=== PATIENT | female | born 1955 | race Hispanic/Latino ===

== ENCOUNTER 2017-11-14 06:37 | Inpatient (IN) | payer MEDICARE ==
[2017-11-14 06:37] VITALS: BMI 23.6
[2017-11-14] MEDS ORDERED: Albuterol-Ipratrop 3 mg / 0.5 (3 ml) UD INH STA (07:27)
[2017-11-14] MEDS ORDERED: Sodium Chloride 0.9% 1,000 ML IV STA (07:29)
[2017-11-14] MEDS ORDERED: Moxifloxacin IV 400mg/250ml NS 400 MG/250 ML BAG IVPB STA (07:32)
[2017-11-14] MEDS ORDERED: oxyCODONE 10 mg ER Tab (oxyCONTIN) PO STA (07:40)
[2017-11-14] MEDS ORDERED: levoFLOXacin 500 mg in D5W 500 MG/100 ML BAG IVPB ONE ×2 (07:49→07:54)
[2017-11-14] MEDS ORDERED: Albuterol-Ipratrop 3 mg / 0.5 (3 ml) UD ONE (07:53)
[2017-11-14] MEDS ORDERED: oxyCODONE 10 mg ER Tab (oxyCONTIN) PO ONE (07:53)
[2017-11-14 07:56] LABS: ABG ALLEN TEST YES; ARTERIAL BLOOD GAS HCO3 30.9 mmol/L (21-28); ARTERIAL BLOOD GAS O2 SAT 97.9 % (95-98); ARTERIAL BLOOD GAS PCO2 37 mm/Hg (35-45); ARTERIAL BLOOD GAS PH 7.53 (7.35-7.45); ARTERIAL BLOOD GAS PO2 58 mm/Hg (80-100)
[2017-11-14 08:06] LABS: BASO # 0.1 K/uL (0.0-0.2); BASO % 0.6 % (0.0-2.0); EOS # 0.2 K/uL (0.0-0.7); EOS % 1.2 % (0.0-4.0); HEMOGLOBIN 9.2 g/dL (12.0-16.0); LYMPH # 1.2 K/uL (1.0-4.3); LYMPH % 6.1 % (20.0-40.0); MEAN CELL VOLUME 85.4 fl (81.0-99.0); MEAN CORPUSCULAR HGB CONC 31.7 g/dL (33.0-37.0); MEAN PLATELET VOLUME 7.7 fl (7.2-11.7); MONO # 1.6 K/uL (0.0-0.8); MONO % 8.5 % (0.0-10.0); NEUT # 16.2 K/uL (1.8-7.0); NEUT % 83.6 % (50.0-75.0); PLATELET COUNT 438 K/uL (130-400); RED CELL DISTRIBUTION WIDTH 17.6 % (11.5-14.5); WHITE BLOOD COUNT 19.4 K/uL (4.8-10.8)
--- NOTE | 2017-11-14 08:14 | ED PDOC ---
HPI: General Adult Time Seen by Provider: 11/14/17 07:08 Chief Complaint (Nursing): Cough, Cold, Congestion Chief Complaint (Provider): Cough, Cold, Congestion History Per: Patient History/Exam Limitations: no limitations Onset/Duration Of Symptoms: Persistent (x3 weeks) Current Symptoms Are (Timing): Still Present Additional Complaint(s): Annetta Omalley is a 62 year old female with a history of COPD, hypertension, aortic stenosis, rheumatoid arthritis, and high cholesterol that presents to the ED with a chief complaint of a productive cough with thick, dark mucous that she has been experiencing for the past three weeks. Patient reports that since its onset, her cough has gradually worsened, and that she has had decreased appetite and has been feeling generally weak. She reports associated right sided back pain and denies any fevers, chills, vomiting, or diarrhea. Past Medical History Reviewed: Historical Data, Nursing Documentation, Vital Signs Vital Signs: Last Vital Signs Temp 97.6 F 11/14/17 06:53 Pulse 96 H 11/14/17 06:53 Resp 18 11/14/17 06:53 BP 149/65 11/14/17 06:53 Pulse Ox 91 L 11/14/17 08:28 - Medical History PMH: Anxiety, Bronchitis, COPD, HTN, Hypercholesterolemia, Mitral Valve Prolapse , Rheumatoid Arthritis, Seizures Denies: Depression, Chronic Kidney Disease Other PMH: aortic stenosis - Surgical History Surgical History: Cholecystectomy - Family History Family History: States: Unknown Family Hx - Immunization History Hx Tetanus Toxoid Vaccination: Yes - Home Medications Home Medications: Ambulatory Orders Medication Instructions Recorded Alprazolam [Xanax] 0.5 mg PO TID 11/14/17 HCTZ/Losartan Potassium [Hyzaar 1 tab PO DAILY 11/14/17 12.5 mg-50 mg] Multivitamin [Multivitamins] 1 tab PO DAILY 11/14/17 Oxycodone HCl [Oxycontin] 30 mg PO Q12 11/14/17 Rosuvastatin Calcium [Crestor] 5 mg PO DAILY 11/14/17 hydroCHLOROthiazide [Hydrodiuril] 12.5 mg PO DAILY 11/14/17 levETIRAcetam [Keppra] 250 mg PO BID 11/14/17 oxyCODONE [oxyCODONE Immediate 30 mg PO Q4 PRN 01/28/18 Release Tab] - Allergies Allergies/Adverse Reactions: Allergies Allergy/AdvReac Type Severity Reaction Status Date / Time duloxetine [From Cymbalta] Allergy URTICARIA Verified 11/14/17 06:51 erythromycin base Allergy ANAPHYLAXIS Verified 11/14/17 06:51 Penicillins Allergy ANAPHYLAXIS Verified 11/14/17 06:51 pregabalin [From Lyrica] Allergy URTICARIA Verified 11/14/17 06:51 Review of Systems Constitutional: Positive for: Weakness (generalized), Other (decreased appetite) Cardiovascular: Positive for: Chest Pain (right-sided) Respiratory: Positive for: Cough (productive), Shortness of Breath Gastrointestinal: Negative for: Nausea, Vomiting, Diarrhea Physical Exam - Reviewed Nursing Documentation Reviewed: Yes Vital Signs Reviewed: Yes - Physical Exam Appears: Positive for: Non-toxic. Negative for: Well (Patient moderately ill- appearing) Head Exam: Positive for: ATRAUMATIC, NORMOCEPHALIC Skin: Positive for: Normal Color, Warm. Negative for: Rash Eye Exam: Positive for: Normal appearance, EOMI, PERRL ENT: Positive for: Other (Slightly). Negative for: Normal ENT Inspection Cardiovascular/Chest: Positive for: Regular Rate, Rhythm. Negative for: Murmur Respiratory: Positive for: Crackles (Crackles present on entire right side, crackles only present in left lower field). Negative for: Normal Breath Sounds (Mild SOB) Gastrointestinal/Abdominal: Positive for: Normal Exam, Soft. Negative for: Tenderness Extremity: Positive for: Normal ROM. Negative for: Pedal Edema, Swelling Neurologic/Psych: Positive for: Alert, Oriented. Negative for: Motor/Sensory Deficits - Laboratory Results Result Diagrams: 11/14/17 07:54 11/14/17 07:54 - ECG O2 Sat by Pulse Oximetry: 91 (RA) Pulse Ox Interpretation: Normal Medical Decision Making Medical Decision Making: Impression: Pneumonia with hx of COPD Impression: * EKG * Chest X-Ray * Albuterol 3 mL * Levofloxacin 500 mg in 100 mL IVPB * NaCl 1000 mLs at 125 ms/hr * Oxycodone 30 mg PO * Urinalysis * Blood Culture * Flu Swab * Reevaluation Scribe Attestation: Documented by Yareli Singh, acting as a scribe for Antonia David MD. Provider Scribe Attestation: All medical record entries made by the Scribe were at my direction and personally dictated by me. I have reviewed the chart and agree that the record accurately reflects my personal performance of the history, physical exam, medical decision making, and the department course for this patient. I have also personally directed, reviewed, and agree with the discharge instructions and disposition. 9.10a - patient is still short of breath. PO2 58. WBC 19K. CXR: right sided haziness. Will admit for pneumonia to hospitalist service. Dr. Osorio is on the list of [facility] MDs who admit to hospitalist service. Disposition - Clinical Impression Clinical Impression: Pneumonia - Patient ED Disposition Is Patient to be Admitted: Yes Doctor Will See Patient In The: Hospital - Disposition Disposition: Transfer of Care Disposition Time: 09:15 Condition: FAIR Forms: [employer] (Chinese) - Pt Status Changed To: Hospital Disposition Of: Inpatient - Admit Certification Admit to Inpatient:: After my assessment, the patient will require hospitalization for at least two midnights. This is because of the severity of symptoms shown, intensity of services needed, and/or the medical risk in this patient being treated as an outpatient. - POA Present On Arrival: None
[2017-11-14 08:15] LABS: ALB/GLOB RATIO 0.7 (1.0-2.1); ALT/SGPT 35 U/L (9-52); AST/SGOT 44 U/L (14-36); BLOOD UREA NITROGEN 11 mg/dl (7-17); CALCIUM 8.5 mg/dL (8.4-10.2); GFR AFRICAN-AMERICAN > 60; GFR NON-AFRICAN AMERICAN > 60
[2017-11-14] MEDS ORDERED: Promethazine DM 6.25 mg-15 mg/5 ml Syrup PO STA (09:22)
[2017-11-14] MEDS ORDERED: Promethazine/Cod 6.25mg-10mg/5ml Syr UD ONE (09:45)
[2017-11-14] MEDS ORDERED: Sodium Chloride 3% for Inhalation 4 ML VIAL.NEB IH PRN (09:46)
--- NOTE | 2017-11-14 10:00 | CP.PCM.HP ---
History of Present Illness - History of Present Illness History of Present Illness: 62 yo female with history of RA on Humira, COPD, HTN, HLD, Aortic Stenosis, previous CVA and Seizure brought by son because of cough productive with thick, yellow sputum for the last 2 weeks associated with body aches and fever. Also has been having SOB and right sided chest pain when taking a deep breath and coughing. Present on Admission - Present on Admission Any Indicators Present on Admission: No History of DVT/PE: No History of Uncontrolled Diabetes: No Urinary Catheter: No Decubitus Ulcer Present: No Review of Systems - Review of Systems All systems: reviewed and no additional remarkable complaints except (aside from those mentioned above, 12 point system review were negative by me) Past Patient History - Infectious Disease Hx of Infectious Diseases: None - Tetanus Immunizations Tetanus Immunization: Unknown - Past Medical History & Family History Past Medical History?: Yes Pertinent Family History: mother had cervical cancer, sister had breast cancer - Past Social History Smoking Status: Heavy Smoker > 10 Cigarettes Daily Alcohol: None Drugs: Denies Home Situation {Lives}: With Family - CARDIAC Hx Heart Murmur: Yes Hx Hypercholesterolemia: Yes Hx Hypertension: Yes Hx Mitral Valve Prolapse: Yes - PULMONARY Hx Bronchitis: Yes Hx Chronic Obstructive Pulmonary Disease (COPD): Yes - NEUROLOGICAL HX Cerebrovascular Accident: Yes Hx Seizures: Yes - HEENT Hx HEENT Problems: No - RENAL Hx Chronic Kidney Disease: No - ENDOCRINE/METABOLIC Hx Endocrine Disorders: No - HEMATOLOGICAL/ONCOLOGICAL Hx Blood Disorders: Yes Hx Cancer: Yes (Skin Ca on face 20 yrs ago) - INTEGUMENTARY Hx Dermatological Problems: Yes (facial skin cancer??) - MUSCULOSKELETAL/RHEUMATOLOGICAL Hx Rheumatoid Arthritis: Yes - GASTROINTESTINAL Hx Gastrointestinal Disorders: No - GENITOURINARY/GYNECOLOGICAL Hx Genitourinary Disorders: No - PSYCHIATRIC Hx Anxiety: Yes Hx Depression: No - SURGICAL HISTORY Hx Breast Biopsy: Yes Hx Cholecystectomy: Yes Hx Hysterectomy: Yes - ANESTHESIA Hx Anesthesia: Yes Hx Anesthesia Reactions: No Hx Malignant Hyperthermia: No Meds Allergies/Adverse Reactions: Allergies Allergy/AdvReac Type Severity Reaction Status Date / Time duloxetine [From Cymbalta] Allergy URTICARIA Verified 11/14/17 06:51 erythromycin base Allergy ANAPHYLAXIS Verified 11/14/17 06:51 Penicillins Allergy ANAPHYLAXIS Verified 11/14/17 06:51 pregabalin [From Lyrica] Allergy URTICARIA Verified 11/14/17 06:51 Physical Exam - Constitutional Appears: No Acute Distress - Head Exam Head Exam: ATRAUMATIC - Eye Exam Eye Exam: absent: Scleral icterus - ENT Exam ENT Exam: Mucous Membranes Moist. absent: Normal Exam (poor dental hygiene) - Neck Exam Neck exam: Negative for: Meningismus - Respiratory Exam Respiratory Exam: Rales (on both lower mack , more on the right). absent: Wheezes, Respiratory Distress - Cardiovascular Exam Cardiovascular Exam: REGULAR RHYTHM, +S1, +S2, Systolic Murmur - GI/Abdominal Exam GI & Abdominal Exam: Soft. absent: Tenderness - Rectal Exam Rectal Exam: Deferred - Extremities Exam Extremities exam: Negative for: calf tenderness, pedal edema - Back Exam Back exam: absent: tenderness - Neurological Exam Neurological exam: Alert, Oriented x3 - Psychiatric Exam Psychiatric exam: Normal Affect - Skin Skin Exam: Dry, Intact Results - Vital Signs Recent Vital Signs: Last Vital Signs Temp 98.9 F 11/14/17 09:25 Pulse 97 H 11/14/17 09:25 Resp 16 11/14/17 09:25 BP 135/76 11/14/17 09:25 Pulse Ox 91 L 11/14/17 09:26 - Labs Result Diagrams: 11/14/17 07:54 11/14/17 07:54 Labs: Laboratory Results - last 24 hr 11/14/17 11/14/17 11/14/17 07:32 07:50 07:54 WBC 19.4 H RBC 3.40 L Hgb 9.2 L Hct 29.0 L MCV 85.4 MCH 27.0 MCHC 31.7 L RDW 17.6 H Plt Count 438 H MPV 7.7 Neut % (Auto) 83.6 H Lymph % (Auto) 6.1 L [place] % (Auto) 8.5 Eos % (Auto) 1.2 Baso % (Auto) 0.6 Neut # 16.2 H Lymph # 1.2 [place] # 1.6 H Eos # 0.2 Baso # 0.1 pCO2 37 pO2 58 L HCO3 30.9 H ABG pH 7.53 H ABG Total CO2 32.0 H ABG O2 Saturation 97.9 ABG Base Excess 7.8 H Adrian Test Yes ABG Potassium 3.6 A-a O2 Difference 45.0 Sodium 137.0 Chloride 101.0 Glucose 89 Lactate 0.8 FiO2 21.0 Potassium Carbon Dioxide Anion Gap BUN Creatinine Est GFR ( Amer) Est GFR (Non-Af Amer) Random Glucose Calcium Total Bilirubin AST ALT Alkaline Phosphatase Total Protein Albumin Globulin Albumin/Globulin Ratio Arterial Blood Potassium 3.6 Influenza Typ A,B (EIA) Negative for flu a/b 11/14/17 07:54 WBC RBC Hgb Hct MCV MCH MCHC RDW Plt Count MPV Neut % (Auto) Lymph % (Auto) [place] % (Auto) Eos % (Auto) Baso % (Auto) Neut # Lymph # [place] # Eos # Baso # pCO2 pO2 HCO3 ABG pH ABG Total CO2 ABG O2 Saturation ABG Base Excess Adrian Test ABG Potassium A-a O2 Difference Sodium 138 Chloride 99 Glucose Lactate FiO2 Potassium 3.7 Carbon Dioxide 29 Anion Gap 14 BUN 11 Creatinine 0.6 L Est GFR ( Amer) > 60 Est GFR (Non-Af Amer) > 60 Random Glucose 92 Calcium 8.5 Total Bilirubin 0.5 AST 44 H ALT 35 Alkaline Phosphatase 136 H Total Protein 7.1 Albumin 3.0 L Globulin 4.2 H Albumin/Globulin Ratio 0.7 L Arterial Blood Potassium Influenza Typ A,B (EIA) Assessment & Plan - Assessment and Plan (Free Text) Assessment: 62 yo female with history of RA on Humira, COPD, HTN, HLD, Aortic Stenosis, previous CVA and Seizure brought by son because of cough productive with thick, yellow sputum for the last 2 weeks associated with body aches and fever. Also has been having SOB and right sided chest pain when taking a deep breath and coughing. 1. RLL Pneumonia follow up blood and sputum culture continue Levaquin 500mg IV daily continue IV hydration 2. COPD Duoneb q 4hrs prn for wheezing or SOB 3. HTN BP stable continue HCTZ and Losartan 4. Seizure continue Keppra 5. Aortic Stenosis aortic valve replacement recommended but patient is thinking about it 6. DVT prophylaxis Lovenox 40mg SQ daily
[2017-11-14 10:54] LABS: LYMPHOCYTE 6 % (20-50); MONOCYTE 5 % (0-10); NEUTROPHIL 89 % (42-75); PLATELET ESTIMATE SLIGHTLY INCREASED (NORMAL); TOTAL CELLS COUNTED 100
[2017-11-14 10:55] LABS: ANISOCYTOSIS MODERATE; MICROCYTOSIS SLIGHT
[2017-11-14 10:56] LABS: LARGE PLATELETS PRESENT; SPHEROCYTES SLIGHT
[2017-11-14 11:26] LABS: SQUAMOUS EPITHIAL 1 /hpf (0-5); URINE BILIRUBIN NEGATIVE (NEGATIVE); URINE BLOOD NEGATIVE (NEGATIVE); URINE CLARITY CLEAR (Clear); URINE COLOR YELLOW (YELLOW); URINE GLUCOSE (UA) NEG (Normal); URINE LEUKOCYTE ESTERASE NEG Leu/uL (Negative); URINE NITRATE NEGATIVE (NEGATIVE); URINE PROTEIN NEGATIVE (NEGATIVE); URINE UROBILINOGEN 0.2-1.0 mg/dL (0.2-1.0)
--- NOTE | 2017-11-14 11:38 | RAD ---
HISTORY: productive cough x3 weeks, crackles on exam COMPARISON: No prior. TECHNIQUE: Chest PA and lateral FINDINGS: LUNGS: Patchy infiltrate changes seen in the right lung base with what blunting of the right CP angle possibly due to an effusion in this location. There also coarsened/increased interstitial markings bilaterally with a few scattered peribronchial cuffing changes which could be secondary to concomitant underlying reactive/inflammatory airway disease or sequela viral illness. PLEURA: No significant pleural effusion identified. No pneumothorax apparent. CARDIOVASCULAR: . Heart size within range of normal. . OSSEOUS STRUCTURES: Minor multilevel degenerative spondylosis of the thoracic spine. . VISUALIZED UPPER ABDOMEN: Normal. OTHER FINDINGS: None. IMPRESSION: Patchy infiltrate changes seen in the right lung base with what blunting of the right CP angle possibly due to an effusion in this location. There also coarsened/increased interstitial markings bilaterally with a few scattered peribronchial cuffing changes which could be secondary to concomitant underlying reactive/inflammatory airway disease or sequela viral illness.
[2017-11-14] MEDS: oxyCODONE 10 mg Immediate Release Tab PO PRN ×2 (13:11→18:32)
[2017-11-14] MEDS: Albuterol-Ipratrop 3 mg / 0.5 (3 ml) UD INH PRN ×2 (17:12→23:23)
[2017-11-14] MEDS: guaiFENesin DM 200 mg-20 mg/10 ml UD PO PRN ×2 (18:32→23:20)
[2017-11-14] MEDS: oxyCODONE 10 mg ER Tab (oxyCONTIN) PO SCH ×2 (21:47→23:21)
[2017-11-15 06:59] LABS: BASO # 0.1 K/uL (0.0-0.2); BASO % 0.9 % (0.0-2.0); EOS # 0.2 K/uL (0.0-0.7); EOS % 1.6 % (0.0-4.0); HEMOGLOBIN 8.6 g/dL (12.0-16.0); LYMPH # 2.3 K/uL (1.0-4.3); LYMPH % 15.8 % (20.0-40.0); MEAN CELL VOLUME 85.5 fl (81.0-99.0); MEAN CORPUSCULAR HEMOGLOBIN 28.3 pg (27.0-31.0); MEAN CORPUSCULAR HGB CONC 33.1 g/dL (33.0-37.0); MEAN PLATELET VOLUME 8.1 fl (7.2-11.7); MONO # 1.5 K/uL (0.0-0.8); MONO % 10.2 % (0.0-10.0); NEUT # 10.4 K/uL (1.8-7.0); NEUT % 71.5 % (50.0-75.0); RBC 3.04 Mil/uL (3.80-5.20); RED CELL DISTRIBUTION WIDTH 17.6 % (11.5-14.5); WHITE BLOOD COUNT 14.6 K/uL (4.8-10.8)
[2017-11-15 07:06] LABS: BLOOD UREA NITROGEN 6 mg/dl (7-17); CALCIUM 8.4 mg/dL (8.4-10.2); GFR AFRICAN-AMERICAN > 60; GFR NON-AFRICAN AMERICAN > 60
[2017-11-15] MEDS: Albuterol-Ipratrop 3 mg / 0.5 (3 ml) UD INH PRN ×3 (07:17→19:30)
[2017-11-15] MEDS: oxyCODONE 10 mg Immediate Release Tab PO PRN ×3 (07:59→21:43)
[2017-11-15] MEDS: guaiFENesin DM 200 mg-20 mg/10 ml UD PO PRN ×2 (07:59→21:39)
[2017-11-15] MEDS: HCTZ/Losartan 12.5/50 Tab PO SCH (09:01)
[2017-11-15] MEDS: Pantoprazole 40 mg EC Tab PO SCH (09:01)
[2017-11-15] MEDS: Multivitamin With Minerals Tab PO SCH (09:01)
[2017-11-15] MEDS: Enoxaparin 40 mg Syringe SC SCH (09:02)
[2017-11-15] MEDS: oxyCODONE 10 mg ER Tab (oxyCONTIN) PO SCH ×3 (11:14→21:39)
[2017-11-15] MEDS: levoFLOXacin 500 mg in D5W 500 MG/100 ML BAG IVPB SCH (11:30)
--- NOTE | 2017-11-15 12:52 | CARD ---
APPROVED REPORT EKG Measurement Heart [id number] <Conclusion> Normal sinus rhythm Normal ECG
--- NOTE | 2017-11-15 19:30 | CP.PCM.PN ---
Subjective - Date & Time of Evaluation Date of Evaluation: 11/15/17 Time of Evaluation: 17:40 - Subjective Subjective: Patient seen and examined. Still complaining of coughing and has difficulty expectorating phlegm. Denied SOB. Objective - Vital Signs/Intake and Output Vital Signs (last 24 hours): Temp Pulse Resp BP Pulse Ox 97.6 F 79 20 111/62 97 11/15/17 16:10 11/15/17 16:10 11/15/17 16:10 11/15/17 16:10 11/15/17 16:10 - Medications Medications: Current Medications Albuterol/Ipratropium (Duoneb 3 Mg/0.5 Mg (3 Ml) Ud) 3 ml INH RQ4 PRN PRN Reason: Shortness of Breath Last Admin: 11/15/17 13:02 Dose: 3 ml Alprazolam (Xanax) 0.5 mg PO TID [facility] Last Admin: 11/15/17 17:16 Dose: 0.5 mg Atorvastatin Calcium (Lipitor) 10 mg PO DAILY [facility] Last Admin: 11/15/17 09:02 Dose: 10 mg Docusate Sodium (Colace) 100 mg PO BID [facility] Last Admin: 11/15/17 17:14 Dose: 100 mg Enoxaparin Sodium (Lovenox) 40 mg SC DAILY [facility] PRN Reason: Protocol Last Admin: 11/15/17 09:02 Dose: 40 mg Guaifenesin/Dextromethorphan (Robitussin Dm) 10 ml PO Q4 PRN PRN Reason: Cough Last Admin: 11/15/17 07:59 Dose: 10 ml HCTZ/Losartan Potassium (Hyzaar 12.5 Mg-50 Mg) 1 tab PO DAILY [facility] Last Admin: 11/15/17 09:01 Dose: 1 tab Levofloxacin/Dextrose (Levaquin 500mg) 500 mg in 100 mls @ 100 mls/hr IVPB DAILY [facility] PRN Reason: Protocol Last Admin: 11/15/17 11:30 Dose: 100 mls/hr Levetiracetam (Keppra) 250 mg PO BID [facility] Last Admin: 11/15/17 17:15 Dose: 250 mg Multivitamins/Minerals (Therapeutic-M Tab) 1 tab PO DAILY [facility] Last Admin: 11/15/17 09:01 Dose: 1 tab Oxycodone HCl (Oxycontin Extended Release Tab) 30 mg PO Q12 [facility] Last Admin: 11/15/17 11:14 Dose: 30 mg Oxycodone HCl (Oxycodone Immediate Release Tab) 30 mg PO Q4 PRN PRN Reason: Pain, moderate (4-7) Last Admin: 11/15/17 15:35 Dose: 30 mg Pantoprazole Sodium (Protonix Ec Tab) 40 mg PO DAILY [facility] Last Admin: 11/15/17 09:01 Dose: 40 mg - Labs Labs: 11/15/17 05:45 11/15/17 05:45 - Constitutional Appears: No Acute Distress - Head Exam Head Exam: ATRAUMATIC - Eye Exam Eye Exam: absent: Scleral icterus - ENT Exam ENT Exam: Mucous Membranes Dry - Neck Exam Neck Exam: absent: Meningismus - Respiratory Exam Respiratory Exam: Rhonchi. absent: Wheezes, Respiratory Distress - Cardiovascular Exam Cardiovascular Exam: REGULAR RHYTHM, +S1, +S2, Murmur - GI/Abdominal Exam GI & Abdominal Exam: Soft. absent: Tenderness - Rectal Exam Rectal Exam: Deferred - Extremities Exam Extremities Exam: absent: Calf Tenderness - Neurological Exam Neurological Exam: Alert, Oriented x3 - Psychiatric Exam Psychiatric exam: Normal Affect - Skin Skin Exam: Dry Assessment and Plan - Assessment and Plan (Free Text) Assessment: 62 yo female with history of RA on Humira, COPD, HTN, HLD, Aortic Stenosis, previous CVA and Seizure brought by son because of cough productive with thick, yellow sputum for the last 2 weeks associated with body aches and fever. Also has been having SOB and right sided chest pain when taking a deep breath and coughing. 1. RLL Pneumonia continue Levaquin 500mg IV daily continue IV hydration WBC down from 19.4 to 14.6 repeat CBC in am 2. COPD Duoneb q 4hrs prn for wheezing or SOB 3. HTN BP stable continue HCTZ and Losartan 4. Seizure continue Keppra 5. Aortic Stenosis aortic valve replacement recommended but patient is thinking about it 6. DVT prophylaxis Lovenox 40mg SQ daily
[2017-11-16] MEDS: guaiFENesin DM 200 mg-20 mg/10 ml UD PO PRN ×3 (03:34→17:05)
[2017-11-16] MEDS: Albuterol-Ipratrop 3 mg / 0.5 (3 ml) UD INH PRN ×3 (03:39→23:52)
[2017-11-16] MEDS: oxyCODONE 10 mg Immediate Release Tab PO PRN ×4 (04:16→21:19)
[2017-11-16 06:51] LABS: BASO # 0.1 K/uL (0.0-0.2); BASO % 0.8 % (0.0-2.0); EOS # 0.5 K/uL (0.0-0.7); EOS % 3.9 % (0.0-4.0); HEMOGLOBIN 8.5 g/dL (12.0-16.0); LYMPH % 16.7 % (20.0-40.0); MEAN CELL VOLUME 85.2 fl (81.0-99.0); MEAN CORPUSCULAR HEMOGLOBIN 28.1 pg (27.0-31.0); MEAN PLATELET VOLUME 7.6 fl (7.2-11.7); MONO # 1.1 K/uL (0.0-0.8); MONO % 9.6 % (0.0-10.0); NEUT # 8.2 K/uL (1.8-7.0); NRBC % 0.1 % (0.0-0.0); RBC 3.01 Mil/uL (3.80-5.20); RED CELL DISTRIBUTION WIDTH 17.8 % (11.5-14.5); WHITE BLOOD COUNT 11.9 K/uL (4.8-10.8)
[2017-11-16] MEDS: oxyCODONE 10 mg ER Tab (oxyCONTIN) PO SCH ×2 (09:12→21:59)
[2017-11-16] MEDS: Multivitamin With Minerals Tab PO SCH (09:14)
[2017-11-16] MEDS: Pantoprazole 40 mg EC Tab PO SCH (09:14)
[2017-11-16] MEDS: Enoxaparin 40 mg Syringe SC SCH (09:15)
[2017-11-16] MEDS: levoFLOXacin 500 mg in D5W 500 MG/100 ML BAG IVPB SCH (11:26)
[2017-11-16] MEDS: HCTZ/Losartan 12.5/50 Tab PO SCH (14:13)
--- NOTE | 2017-11-16 20:21 | CP.PCM.PN ---
Subjective - Date & Time of Evaluation Date of Evaluation: 11/16/17 Time of Evaluation: 11:00 - Subjective Subjective: Patient seen and examined at bedside. She is still complaining of cough productive of sputum. Denies any shortness of breath. Denies fever or chest pain. Objective - Vital Signs/Intake and Output Vital Signs (last 24 hours): Temp Pulse Resp BP Pulse Ox 97.1 F L 78 18 105/67 95 11/16/17 15:54 11/16/17 15:54 11/16/17 15:54 11/16/17 15:54 11/16/17 15:54 - Medications Medications: Current Medications Albuterol/Ipratropium (Duoneb 3 Mg/0.5 Mg (3 Ml) Ud) 3 ml INH RQ4 PRN PRN Reason: Shortness of Breath Last Admin: 11/16/17 07:55 Dose: 3 ml Alprazolam (Xanax) 0.5 mg PO TID@0900,1400,2100 [facility] Atorvastatin Calcium (Lipitor) 10 mg PO DAILY [facility] Last Admin: 11/16/17 09:14 Dose: 10 mg Docusate Sodium (Colace) 100 mg PO BID [facility] Last Admin: 11/16/17 18:07 Dose: 100 mg Enoxaparin Sodium (Lovenox) 40 mg SC DAILY [facility] PRN Reason: Protocol Last Admin: 11/16/17 09:15 Dose: 40 mg Guaifenesin/Dextromethorphan (Robitussin Dm) 10 ml PO Q4 PRN PRN Reason: Cough Last Admin: 11/16/17 17:05 Dose: 10 ml HCTZ/Losartan Potassium (Hyzaar 12.5 Mg-50 Mg) 1 tab PO DAILY [facility] Last Admin: 11/16/17 14:13 Dose: 1 tab Levofloxacin/Dextrose (Levaquin 500mg) 500 mg in 100 mls @ 100 mls/hr IVPB DAILY [facility] PRN Reason: Protocol Last Admin: 11/16/17 11:26 Dose: 100 mls/hr Levetiracetam (Keppra) 250 mg PO BID [facility] Last Admin: 11/16/17 18:07 Dose: 250 mg Multivitamins/Minerals (Therapeutic-M Tab) 1 tab PO DAILY [facility] Last Admin: 11/16/17 09:14 Dose: 1 tab Oxycodone HCl (Oxycontin Extended Release Tab) 30 mg PO Q12 [facility] Last Admin: 11/16/17 09:12 Dose: 30 mg Oxycodone HCl (Oxycodone Immediate Release Tab) 30 mg PO Q4 PRN PRN Reason: Pain, moderate (4-7) Last Admin: 11/16/17 16:55 Dose: 30 mg Pantoprazole Sodium (Protonix Ec Tab) 40 mg PO DAILY [facility] Last Admin: 11/16/17 09:14 Dose: 40 mg - Labs Labs: 11/16/17 05:45 11/15/17 05:45 - Additional Findings Additional findings: Physical exam: Constitutional- cooperative, awake, alert Head- NCAT, PERRL Eye- PERRL, EOMI ENT- normal exam, MMM. Neck- normal inspection, supple, no JVD Respiratory- CTAB, no wheezes rales rhonchi Cardiovascular- RRR, +S1, +S2 no MRG GI/Abdominal- normal bowel sounds, soft, no mass, no hsm Skin- warm, dry Extremities Exam- normal capillary refill, normal inspection Neurological Exam- alert, awake, oriented Psych- normal mood, normal affect Assessment and Plan - Assessment and Plan (Free Text) Plan: 62 yo female with history of RA on Humira, COPD, HTN, HLD, Aortic Stenosis, previous CVA and Seizure brought by son because of cough productive with thick, yellow sputum for the last 2 weeks associated with body aches and fever. Also has been having SOB and right sided chest pain when taking a deep breath and coughing. 1. Right upper lobe pneumonia continue Levaquin 500mg IV daily continue IV hydration WBC down from 19.4 to 14.6 to 11.9 today repeat CBC in am Candidate for possible [facility] placement tomorrow physical therapy screening hemodynamically stable 2. COPD Duoneb q 4hrs prn for wheezing or SOB 3. HTN BP stable continue HCTZ and Losartan 4. Seizure continue Keppra 5. Aortic Stenosis aortic valve replacement recommended but patient is thinking about it 6. DVT prophylaxis Lovenox 40mg SQ daily
[2017-11-17] MEDS: oxyCODONE 10 mg Immediate Release Tab PO PRN ×3 (02:05→13:52)
[2017-11-17 06:30] LABS: HEMOGLOBIN 8.7 g/dL (12.0-16.0); MEAN CELL VOLUME 86.4 fl (81.0-99.0); MEAN CORPUSCULAR HEMOGLOBIN 27.5 pg (27.0-31.0); MEAN CORPUSCULAR HGB CONC 31.8 g/dL (33.0-37.0); RBC 3.17 Mil/uL (3.80-5.20); RED CELL DISTRIBUTION WIDTH 17.4 % (11.5-14.5); WHITE BLOOD COUNT 12.7 K/uL (4.8-10.8)
[2017-11-17 06:46] LABS: BLOOD UREA NITROGEN 9 mg/dl (7-17); CALCIUM 8.6 mg/dL (8.4-10.2); GFR AFRICAN-AMERICAN > 60; GFR NON-AFRICAN AMERICAN > 60
[2017-11-17 08:19] VITALS: BP 108/64; PULSE 82; RESP 22; TEMP 98.4; O2SAT 90
[2017-11-17] MEDS: Albuterol-Ipratrop 3 mg / 0.5 (3 ml) UD INH PRN ×2 (08:46→14:01)
[2017-11-17] MEDS: guaiFENesin DM 200 mg-20 mg/10 ml UD PO PRN (08:52)
[2017-11-17] MEDS: Enoxaparin 40 mg Syringe SC SCH (08:52)
[2017-11-17] MEDS: Multivitamin With Minerals Tab PO SCH (08:53)
[2017-11-17] MEDS: HCTZ/Losartan 12.5/50 Tab PO SCH (08:53)
[2017-11-17] MEDS: Pantoprazole 40 mg EC Tab PO SCH (08:53)
[2017-11-17] MEDS: levoFLOXacin 500 mg in D5W 500 MG/100 ML BAG IVPB SCH (08:55)
[2017-11-17] MEDS: oxyCODONE 10 mg ER Tab (oxyCONTIN) PO SCH (08:55)
--- NOTE | 2017-11-17 10:59 | PQF GENQUE ---
This form is a permanent part of the medical record 11/17/18 Dr. Barfield AFTER workup would you please specify the Type of Pneumonia . Note: CAP, HAP, and HCAP indicate where the pneumonia was acquired, not a specific type. 62 yo female with history of RA on Humira, COPD, HTN, HLD, Aortic Stenosis, previous CVA and Seizure brought by son because of cough productive with thick, yellow sputum for the last 2 weeks associated with body aches and fever. Also has been having SOB and right sided chest pain when taking a deep breath and coughing. WBC 19.4 with a L shift. CXR: Patchy infiltrate changes seen in the right lung base with what blunting of the right CP angle possibly due to an effusion in this location.Treated with Levaquin SPUTUM CS: Pending . Gram Stain: Many polymorphonuclear WBCs, Moderate gram + cocci in clusters Clarification of your documentation is requested to better reflect the severity of illness and intensity of treatment of your patient. Indicators present [] Specify: [] [] Specify: [] [] Specify: [] [] Specify: [] Location in the medical record that reflects the above clinical findings: [] Treatment Provided: [] PHYSICIAN'S RESPONSE Bacterial Pneumonia Type of Pneumonia [] Aspiration pneumonia [] Bacterial (specify organism) [] Bronchopneumonia (specify organism) [] Interstitial pneumonia [] Organizing pneumonia/BOOP [] Pneumonia with influenza, mica flu, or H1N1 flu [] RSV pneumonia [] Tuberculosis, pulmonary [] Viral pneumonia [] Other pneumonia (specify organism or type) [] Clinically unable to determine [] Unknown Based on your medical judgment of the clinical indicators outlined above please clarify the following: [] Practitioner response [] If unable to determine, please check the box, sign and date. Present On Admission (POA) Indicator: [] Present at the time of admission [] Not present at the time of admission [] Clinically Undetermined In responding to this query, please exercise your independent professional judgment. The fact that a question is asked does not imply that any particular answer is desired or expected. Thank you for your clarification on this documentation. If you have any questions please call:ext [phone] * Thank you, Johnna Magallon RN [facility]
--- NOTE | 2017-11-17 12:41 | CP.PCM.DIS ---
Provider - Provider Date of Admission: 11/14/17 09:26 Attending physician: Kareem Feliciano MD Primary care physician: Dr Osorio Time Spent in preparation of Discharge (in minutes): 25 Diagnosis - Discharge Diagnosis (1) Bacterial pneumonia Status: Acute (2) Aortic stenosis Status: Chronic (3) COPD (chronic obstructive pulmonary disease) Status: Chronic (4) Anxiety Status: Chronic (5) Seizure Status: Chronic Hospital Course - Lab Results Lab Results: Micro Results 11/15/17 15:41 Sputum Gram Stain - Final 11/15/17 15:41 Sputum Sputum Culture - Final NORMAL ORAL MARCELO 11/14/17 07:54 Blood Blood Culture - Preliminary NO GROWTH AFTER 3 DAYS 11/14/17 09:50 Blood Blood Culture - Preliminary NO GROWTH AFTER 3 DAYS Most Recent Lab Values WBC 12.7 K/uL (4.8-10.8) H 11/17/17 05:50 RBC 3.17 Mil/uL (3.80-5.20) L 11/17/17 05:50 Hgb 8.7 g/dL (12.0-16.0) L 11/17/17 05:50 Hct 27.4 % (34.0-47.0) L 11/17/17 05:50 MCV 86.4 fl (81.0-99.0) 11/17/17 05:50 MCH 27.5 pg (27.0-31.0) 11/17/17 05:50 MCHC 31.8 g/dL (33.0-37.0) L 11/17/17 05:50 RDW 17.4 % (11.5-14.5) H 11/17/17 05:50 Plt Count 433 K/uL (130-400) H 11/17/17 05:50 MPV 7.6 fl (7.2-11.7) 11/16/17 05:45 Neut % (Auto) 69.0 % (50.0-75.0) 11/16/17 05:45 Lymph % (Auto) 16.7 % (20.0-40.0) L 11/16/17 05:45 [place] % (Auto) 9.6 % (0.0-10.0) 11/16/17 05:45 Eos % (Auto) 3.9 % (0.0-4.0) 11/16/17 05:45 Baso % (Auto) 0.8 % (0.0-2.0) 11/16/17 05:45 Neut # 8.2 K/uL (1.8-7.0) H 11/16/17 05:45 Lymph # 2.0 K/uL (1.0-4.3) 11/16/17 05:45 [place] # 1.1 K/uL (0.0-0.8) H 11/16/17 05:45 Eos # 0.5 K/uL (0.0-0.7) 11/16/17 05:45 Baso # 0.1 K/uL (0.0-0.2) 11/16/17 05:45 Neutrophils % (Manual) 89 % (42-75) H 11/14/17 07:54 Lymphocytes % (Manual) 6 % (20-50) L 11/14/17 07:54 Monocytes % (Manual) 5 % (0-10) 11/14/17 07:54 Platelet Estimate Slightly increased (NORMAL) H 11/14/17 07:54 Large Platelets Present 11/14/17 07:54 Anisocytosis (manual) Moderate 11/14/17 07:54 Microcytosis (manual) Slight 11/14/17 07:54 Macrocytosis (manual) Slight 11/14/17 07:54 Spherocytes Slight 11/14/17 07:54 pCO2 37 mm/Hg (35-45) 11/14/17 07:50 pO2 58 mm/Hg (80-100) L 11/14/17 07:50 HCO3 30.9 mmol/L (21-28) H 11/14/17 07:50 ABG pH 7.53 (7.35-7.45) H 11/14/17 07:50 ABG Total CO2 32.0 mmol/L (22-28) H 11/14/17 07:50 ABG O2 Saturation 97.9 % (95-98) 11/14/17 07:50 ABG Base Excess 7.8 mmol/L (-2.0-3.0) H 11/14/17 07:50 Adrian Test Yes 11/14/17 07:50 ABG Potassium 3.6 mmol/L (3.6-5.2) 11/14/17 07:50 A-a O2 Difference 45.0 mm/Hg 11/14/17 07:50 Sodium 137.0 mmol/L (132-148) 11/14/17 07:50 Chloride 101.0 mmol/L (98-107) 11/14/17 07:50 Glucose 89 mg/dL (65-105) 11/14/17 07:50 Lactate 0.8 mmol/L (0.7-2.1) 11/14/17 07:50 FiO2 21.0 % 11/14/17 07:50 Sodium 135 mmol/l (132-148) 11/17/17 05:50 Potassium 4.3 MMOL/L (3.6-5.0) 11/17/17 05:50 Chloride 94 mmol/L (98-107) L 11/17/17 05:50 Carbon Dioxide 33 mmol/L (22-30) H 11/17/17 05:50 Anion Gap 12 (10-20) 11/17/17 05:50 BUN 9 mg/dl (7-17) 11/17/17 05:50 Creatinine 0.7 mg/dl (0.7-1.2) 11/17/17 05:50 Est GFR ( Amer) > 60 11/17/17 05:50 Est GFR (Non-Af Amer) > 60 11/17/17 05:50 Random Glucose 100 mg/dL (65-105) 11/17/17 05:50 Calcium 8.6 mg/dL (8.4-10.2) 11/17/17 05:50 Total Bilirubin 0.5 mg/dl (0.2-1.3) 11/14/17 07:54 AST 44 U/L (14-36) H 11/14/17 07:54 ALT 35 U/L (9-52) 11/14/17 07:54 Alkaline Phosphatase 136 U/L (38-126) H 11/14/17 07:54 Total Protein 7.1 G/DL (6.3-8.2) 11/14/17 07:54 Albumin 3.0 g/dL (3.5-5.0) L 11/14/17 07:54 Globulin 4.2 gm/dL (2.2-3.9) H 11/14/17 07:54 Albumin/Globulin Ratio 0.7 (1.0-2.1) L 11/14/17 07:54 Arterial Blood Potassium 3.6 mmol/L (3.6-5.2) 11/14/17 07:50 Urine Color Yellow (YELLOW) 11/14/17 09:50 Urine Clarity Clear (Clear) 11/14/17 09:50 Urine pH 7.0 (5.0-8.0) 11/14/17 09:50 Ur Specific [place] 1.011 (1.003-1.030) 11/14/17 09:50 Urine Protein Negative mg/dL (NEGATIVE) 11/14/17 09:50 Urine Glucose (UA) Neg mg/dL (Normal) 11/14/17 09:50 Urine Ketones Negative mg/dL (NEGATIVE) 11/14/17 09:50 Urine Blood Negative (NEGATIVE) 11/14/17 09:50 Urine Nitrate Negative (NEGATIVE) 11/14/17 09:50 Urine Bilirubin Negative (NEGATIVE) 11/14/17 09:50 Urine Urobilinogen 0.2-1.0 mg/dL (0.2-1.0) 11/14/17 09:50 Ur Leukocyte Esterase Neg [place]/uL (Negative) 11/14/17 09:50 Urine RBC (Auto) 3 /hpf (0-3) 11/14/17 09:50 Urine Microscopic WBC 1 /hpf (0-5) 11/14/17 09:50 Ur Squamous Epith Cells 1 /hpf (0-5) 11/14/17 09:50 Influenza Typ A,B (EIA) Negative for flu a/b (NEGATIVE) 11/14/17 07:32 - Hospital Course Hospital Course: 62 yo female with history of RA on Humira, COPD, HTN, HLD, Aortic Stenosis, previous CVA and Seizure brought by son because of cough productive with thick, yellow sputum for the last 2 weeks associated with body aches and fever. Also has been having SOB and right sided chest pain when taking a deep breath and coughing. CXR: Patchy infiltrate changes seen in the right lung base with what blunting of the right CP angle possibly due to an effusion in this location. There also coarsened/increased interstitial markings bilaterally with a few scattered peribronchial cuffing changes which could be secondary to concomitant underlying reactive/inflammatory airway disease or sequela viral illness. 1. Right upper lobe pneumonia pppprob bacterial received Levaquin 500mg IV daily ( allergic to PCN) IV hydration WBC down from 19.4 to 12K Transfer to TCU for further IV abx 2. COPD, chronic Duoneb q 4hrs prn for wheezing or SOB 3. HTN BP stable continue HCTZ and Losartan 4. Seizure continue Keppra 5. Aortic Stenosis ECHO done december 2016 : severe aortic stenosis aortic valve replacement recommended but patient is thinking about it 6. DVT prophylaxis Lovenox 40mg SQ daily Discharge Exam - Head Exam Head Exam: ATRAUMATIC, NORMAL INSPECTION, NORMOCEPHALIC - Eye Exam Eye Exam: Normal appearance, PERRL Pupil Exam: NORMAL ACCOMODATION - ENT Exam ENT Exam: Mucous Membranes Moist, Normal External Ear Exam Additional comments: poor dentition - Neck Exam Neck exam: Full Rom - Respiratory Exam Respiratory Exam: Decreased Breath Sounds, Rales, Rhonchi, Respiratory Distress , NORMAL BREATHING PATTERN - Cardiovascular Exam Cardiovascular Exam: REGULAR RHYTHM, +S1, +S2 - GI/Abdominal Exam GI & Abdominal Exam: Normal Bowel Sounds, Soft. absent: Tenderness - Extremities Exam Extremities exam: full ROM, normal capillary refill, pedal pulses present - Back Exam Back exam: absent: CVA tenderness (L), CVA tenderness (R), vertebral tenderness - Neurological Exam Neurological exam: Alert, CN II-XII Intact, Oriented x3, Reflexes Normal - Psychiatric Exam Psychiatric exam: Normal Affect, Normal Mood - Skin Skin Exam: Dry, Normal Color, Warm Discharge Plan - Discharge Medications Prescriptions: levoFLOXacin 500 mg in D5W [Levaquin 500MG] 500 mg IVPB DAILY #7 bag - Follow Up Plan Condition: GOOD Disposition: TRANSF TO SNF Instructions: Pneumonia (DC) Additional Instructions: d/c pt to TCU follow up appointment with Dr. Darrius Osorio for wednesday at 11: 15am Referrals: Darrius Osorio MD [Family Provider] -
== END 2017-11-17 14:57 | DRG 190 ==
LOC: H.ER 06:37 → H.ERHOLD 09:26 → H.MEDSURG1 10:25
PROC: 3E0F73Z Introduction of Anti-inflammatory into Respiratory Tract, Via Natural or Artificial Opening (ICD-10-PCS; principal; 2017-11-14)
DX: J44.0 Chronic obstructive pulmonary disease with (acute) lower respiratory infection (principal); J15.9 Unspecified bacterial pneumonia; R56.9 Unspecified convulsions; I35.0 Nonrheumatic aortic (valve) stenosis; M06.9 Rheumatoid arthritis, unspecified; I34.1 Nonrheumatic mitral (valve) prolapse; E78.5 Hyperlipidemia, unspecified; I10 Essential (primary) hypertension; F41.9 Anxiety disorder, unspecified; F17.210 Nicotine dependence, cigarettes, uncomplicated; Z86.73 Personal history of transient ischemic attack (TIA), and cerebral infarction without residual deficits; Z88.0 Allergy status to penicillin; Z88.3 Allergy status to other anti-infective agents; Z90.49 Acquired absence of other specified parts of digestive tract; Z90.710 Acquired absence of both cervix and uterus

== ENCOUNTER 2017-11-17 12:28 | Inpatient (IN) | payer MEDICARE, OTHER ==
[2017-11-17 15:21] VITALS: BMI 17.1
[2017-11-17] MEDS: oxyCODONE 10 mg Immediate Release Tab PO PRN ×2 (17:51→22:03)
[2017-11-17] MEDS: Albuterol-Ipratrop 3 mg / 0.5 (3 ml) UD INH PRN (19:50)
[2017-11-17] MEDS ORDERED: Tuberculin 5 Units/0.1 ml Inj ID ONE (20:00)
[2017-11-17] MEDS: oxyCODONE 10 mg ER Tab (oxyCONTIN) PO SCH (21:21)
[2017-11-17] MEDS: Fluticasone-Salmeterol 250-50mcg Diskus IH SCH (22:04)
[2017-11-18] MEDS: oxyCODONE 10 mg Immediate Release Tab PO PRN ×5 (05:11→23:31)
[2017-11-18] MEDS: Albuterol-Ipratrop 3 mg / 0.5 (3 ml) UD INH PRN ×4 (05:18→20:30)
[2017-11-18] MEDS ORDERED: Patient's Own Med (Levofloxacin 500 Mg In D5w [Levaquin 500mg] 500 MG) IVPB SCH (09:00)
[2017-11-18] MEDS: guaiFENesin DM 200 mg-20 mg/10 ml UD PO PRN ×2 (09:14→23:34)
[2017-11-18] MEDS: Enoxaparin 40 mg Syringe SC SCH (09:14)
[2017-11-18] MEDS: Fluticasone-Salmeterol 250-50mcg Diskus IH SCH ×2 (09:14→21:53)
[2017-11-18] MEDS: Multivitamin With Minerals Tab PO SCH (09:15)
[2017-11-18] MEDS: HCTZ/Losartan 12.5/50 Tab PO SCH (09:15)
[2017-11-18] MEDS: oxyCODONE 10 mg ER Tab (oxyCONTIN) PO SCH ×2 (09:15→21:54)
[2017-11-18] MEDS: Pantoprazole 40 mg EC Tab PO SCH (09:15)
--- NOTE | 2017-11-18 14:38 | CP.PCM.HP ---
History of Present Illness - History of Present Illness History of Present Illness: 62 yo female with history of RA (on Humira), COPD, HTN, HLD, Aortic Stenosis, previous CVA and Seizure brought in because of 2 weeks coughing productive with thick yellow sputum associated with body aches, fever, SOB and right sided chest pain. She was admitted with a diagnosis of Right Basal Lung Pneumonia when CXray showed patchy infiltrate on the right base. She was put on IV Levaquin and was transferred to TCU for continuation of IV antibiotic and PT/OT for her RA. Present on Admission - Present on Admission Any Indicators Present on Admission: No History of DVT/PE: No History of Uncontrolled Diabetes: No Urinary Catheter: No Decubitus Ulcer Present: No Review of Systems - Review of Systems All systems: reviewed and no additional remarkable complaints except (aside from those mentioned above, 12 point system review were negative by me) Past Patient History - Infectious Disease Hx of Infectious Diseases: None - Tetanus Immunizations Tetanus Immunization: Unknown - Past Medical History & Family History Past Medical History?: Yes - Past Social History Smoking Status: Heavy Smoker > 10 Cigarettes Daily Home Situation {Lives}: With Family - CARDIAC Hx Cardiac Disorders: Yes Hx Heart Murmur: Yes Hx Hypercholesterolemia: Yes Hx Hypertension: Yes Hx Mitral Valve Prolapse: Yes Other/Comment: Aortic Stenosis - PULMONARY Hx Respiratory Disorders: Yes Hx Bronchitis: Yes Hx Chronic Obstructive Pulmonary Disease (COPD): Yes Hx Pneumonia: Yes - NEUROLOGICAL Hx Neurological Disorder: Yes HX Cerebrovascular Accident: Yes Hx Seizures: Yes - HEENT Hx HEENT Problems: No - RENAL Hx Chronic Kidney Disease: No - ENDOCRINE/METABOLIC Hx Endocrine Disorders: No - HEMATOLOGICAL/ONCOLOGICAL Hx Blood Disorders: Yes Hx AIDS: No Hx Cancer: Yes (Skin Ca on face 20 yrs ago) Hx Human Immunodeficiency Virus (HIV): No - INTEGUMENTARY Hx Dermatological Problems: Yes (facial skin cancer??) - MUSCULOSKELETAL/RHEUMATOLOGICAL Hx Falls: Yes Hx Rheumatoid Arthritis: Yes - GASTROINTESTINAL Hx Gastrointestinal Disorders: No - GENITOURINARY/GYNECOLOGICAL Hx Genitourinary Disorders: No - PSYCHIATRIC Hx Anxiety: Yes Hx Depression: No Hx Substance Use: No - SURGICAL HISTORY Hx Breast Biopsy: Yes Hx Cholecystectomy: Yes Hx Hysterectomy: Yes - ANESTHESIA Hx Anesthesia: Yes Hx Anesthesia Reactions: No Hx Malignant Hyperthermia: No Meds Allergies/Adverse Reactions: Allergies Allergy/AdvReac Type Severity Reaction Status Date / Time duloxetine [From Cymbalta] Allergy URTICARIA Verified 11/17/17 15:16 erythromycin base Allergy ANAPHYLAXIS Verified 11/17/17 15:16 Penicillins Allergy ANAPHYLAXIS Verified 11/17/17 15:16 pregabalin [From Lyrica] Allergy URTICARIA Verified 11/17/17 15:16 Physical Exam - Constitutional Appears: No Acute Distress - Head Exam Head Exam: ATRAUMATIC - Eye Exam Eye Exam: absent: Scleral icterus - ENT Exam ENT Exam: Mucous Membranes Moist - Neck Exam Neck exam: Negative for: Meningismus - Respiratory Exam Respiratory Exam: Decreased Breath Sounds, Rales (on both bases). absent: Wheezes, Respiratory Distress - Cardiovascular Exam Cardiovascular Exam: REGULAR RHYTHM, +S1, +S2 - GI/Abdominal Exam GI & Abdominal Exam: Soft. absent: Tenderness - Rectal Exam Rectal Exam: Deferred - Extremities Exam Extremities exam: Negative for: pedal edema - Back Exam Back exam: absent: tenderness - Neurological Exam Neurological exam: Alert, Oriented x3 - Psychiatric Exam Psychiatric exam: Normal Affect - Skin Skin Exam: Dry, Intact Results - Vital Signs Recent Vital Signs: Last Vital Signs Temp 97.9 F 11/18/17 09:01 Pulse 93 H 11/18/17 09:01 Resp 20 11/18/17 09:01 BP 121/57 L 11/18/17 09:01 Pulse Ox 90 L 11/18/17 09:01 Assessment & Plan - Assessment and Plan (Free Text) Assessment: 62 yo female with history of RA (on Humira), COPD, HTN, HLD, Aortic Stenosis, previous CVA and Seizure brought in because of 2 weeks coughing productive with thick yellow sputum associated with body aches, fever, SOB and right sided chest pain. She was admitted with a diagnosis of Right Basal Lung Pneumonia when CXray showed patchy infiltrate on the right base. She was put on IV Levaquin and was transferred to TCU for continuation of IV antibiotic and PT/OT for her RA. 1. Right Basal Pneumonia still coughing with thick yellow sputum continue Levaquin 500mg IV daily liberal oral intake of fluid refused nebulizer that promote coughing 2. COPD Duoneb q 4hrs prn for wheezing or SOB 3. HTN BP stable continue HCTZ and Losartan 4. Seizure continue Keppra 5. Aortic Stenosis aortic valve replacement recommended but patient still thinking about it 6. RA refer to Dr Maguire for physiatry consult and pain management 7. DVT prophylaxis Lovenox 40mg SQ daily
[2017-11-18] MEDS: levoFLOXacin 500 mg in D5W 500 MG/100 ML BAG IVPB SCH (16:23)
[2017-11-19] MEDS: oxyCODONE 10 mg Immediate Release Tab PO PRN ×5 (04:05→20:58)
[2017-11-19] MEDS: Pantoprazole 40 mg EC Tab PO SCH (08:29)
[2017-11-19] MEDS: Fluticasone-Salmeterol 250-50mcg Diskus IH SCH ×2 (08:29→21:01)
[2017-11-19] MEDS: oxyCODONE 10 mg ER Tab (oxyCONTIN) PO SCH ×3 (08:30→22:02)
[2017-11-19] MEDS: HCTZ/Losartan 12.5/50 Tab PO SCH (08:30)
[2017-11-19] MEDS: levoFLOXacin 500 mg in D5W 500 MG/100 ML BAG IVPB SCH (08:30)
[2017-11-19] MEDS: Multivitamin With Minerals Tab PO SCH (08:30)
[2017-11-19] MEDS: Enoxaparin 40 mg Syringe SC SCH (08:30)
[2017-11-19] MEDS: Albuterol-Ipratrop 3 mg / 0.5 (3 ml) UD INH PRN ×2 (08:51→21:18)
[2017-11-20] MEDS: oxyCODONE 10 mg Immediate Release Tab PO PRN ×6 (02:12→23:32)
[2017-11-20] MEDS: Albuterol-Ipratrop 3 mg / 0.5 (3 ml) UD INH PRN ×2 (07:33→20:53)
[2017-11-20] MEDS: Fluticasone-Salmeterol 250-50mcg Diskus IH SCH ×2 (08:39→21:31)
[2017-11-20] MEDS: HCTZ/Losartan 12.5/50 Tab PO SCH (08:40)
[2017-11-20] MEDS: Pantoprazole 40 mg EC Tab PO SCH (08:41)
[2017-11-20] MEDS: Multivitamin With Minerals Tab PO SCH (08:41)
[2017-11-20] MEDS: Enoxaparin 40 mg Syringe SC SCH (08:41)
[2017-11-20] MEDS: levoFLOXacin 500 mg in D5W 500 MG/100 ML BAG IVPB SCH (08:44)
[2017-11-20] MEDS: oxyCODONE 10 mg ER Tab (oxyCONTIN) PO SCH ×2 (10:05→22:24)
[2017-11-21] MEDS: oxyCODONE 10 mg Immediate Release Tab PO PRN ×5 (05:18→22:35)
[2017-11-21] MEDS: Enoxaparin 40 mg Syringe SC SCH (08:45)
[2017-11-21] MEDS: Pantoprazole 40 mg EC Tab PO SCH (08:47)
[2017-11-21] MEDS: HCTZ/Losartan 12.5/50 Tab PO SCH (08:47)
[2017-11-21] MEDS: Multivitamin With Minerals Tab PO SCH (08:47)
[2017-11-21] MEDS: Fluticasone-Salmeterol 250-50mcg Diskus IH SCH ×2 (08:48→21:04)
[2017-11-21] MEDS: oxyCODONE 10 mg ER Tab (oxyCONTIN) PO SCH ×2 (08:52→21:05)
[2017-11-21] MEDS: levoFLOXacin 500 mg in D5W 500 MG/100 ML BAG IVPB SCH (09:00)
[2017-11-21] MEDS: Albuterol-Ipratrop 3 mg / 0.5 (3 ml) UD INH PRN (10:00)
[2017-11-21 20:16] VITALS: RESP 20
[2017-11-22] MEDS: oxyCODONE 10 mg Immediate Release Tab PO PRN ×6 (02:09→23:57)
[2017-11-22] MEDS: Albuterol-Ipratrop 3 mg / 0.5 (3 ml) UD INH PRN (08:22)
[2017-11-22] MEDS: levoFLOXacin 500 mg in D5W 500 MG/100 ML BAG IVPB SCH ×2 (09:19→16:45)
[2017-11-22] MEDS: Pantoprazole 40 mg EC Tab PO SCH (09:21)
[2017-11-22] MEDS: Fluticasone-Salmeterol 250-50mcg Diskus IH SCH ×2 (09:21→21:22)
[2017-11-22] MEDS: Multivitamin With Minerals Tab PO SCH (09:22)
[2017-11-22] MEDS: HCTZ/Losartan 12.5/50 Tab PO SCH (09:22)
[2017-11-22] MEDS: Enoxaparin 40 mg Syringe SC SCH (09:23)
[2017-11-22] MEDS: oxyCODONE 10 mg ER Tab (oxyCONTIN) PO SCH ×2 (09:27→21:22)
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
[2017-11-23] MEDS: oxyCODONE 10 mg Immediate Release Tab PO PRN ×5 (03:59→21:20)
[2017-11-23] MEDS: Fluticasone-Salmeterol 250-50mcg Diskus IH SCH ×2 (08:31→21:23)
[2017-11-23] MEDS: Enoxaparin 40 mg Syringe SC SCH (08:35)
[2017-11-23] MEDS: HCTZ/Losartan 12.5/50 Tab PO SCH (08:35)
[2017-11-23] MEDS: Pantoprazole 40 mg EC Tab PO SCH (08:35)
[2017-11-23] MEDS: Multivitamin With Minerals Tab PO SCH (08:35)
[2017-11-23] MEDS: guaiFENesin DM 200 mg-20 mg/10 ml UD PO PRN (10:29)
[2017-11-23] MEDS: oxyCODONE 10 mg ER Tab (oxyCONTIN) PO SCH ×2 (10:30→22:57)
[2017-11-23 16:59] LABS: BASO # 0.1 K/uL (0.0-0.2); BASO % 1.3 % (0.0-2.0); EOS # 0.2 K/uL (0.0-0.7); HEMOGLOBIN 9.1 g/dL (12.0-16.0); LYMPH # 2.6 K/uL (1.0-4.3); LYMPH % 32.5 % (20.0-40.0); MEAN CELL VOLUME 85.7 fl (81.0-99.0); MEAN CORPUSCULAR HEMOGLOBIN 27.5 pg (27.0-31.0); MEAN PLATELET VOLUME 7.3 fl (7.2-11.7); MONO # 0.8 K/uL (0.0-0.8); MONO % 10.3 % (0.0-10.0); NEUT # 4.3 K/uL (1.8-7.0); NEUT % 52.9 % (50.0-75.0); NRBC % 0.1 % (0.0-0.0); RBC 3.33 Mil/uL (3.80-5.20); RED CELL DISTRIBUTION WIDTH 17.3 % (11.5-14.5); WHITE BLOOD COUNT 8.1 K/uL (4.8-10.8)
[2017-11-23] MEDS: levoFLOXacin 500 mg in D5W 500 MG/100 ML BAG IVPB SCH (17:03)
[2017-11-23 17:15] LABS: CALCIUM 9.2 mg/dL (8.4-10.2)
--- NOTE | 2017-11-23 17:53 | CP.PCM.PN ---
Subjective - Date & Time of Evaluation Date of Evaluation: 11/23/17 Time of Evaluation: 15:30 - Subjective Subjective: Pt seen and examined. Complained of losing weight since she lost her sense of taste and smell following CVA several yrs ago. Requested consult with a rn outpatient surgery Objective - Vital Signs/Intake and Output Vital Signs (last 24 hours): Temp Pulse Resp BP Pulse Ox 98.1 F 78 20 107/57 L 93 L 11/23/17 16:20 11/23/17 17:01 11/23/17 16:20 11/23/17 17:01 11/23/17 16:20 - Medications Medications: Current Medications Albuterol/Ipratropium (Duoneb 3 Mg/0.5 Mg (3 Ml) Ud) 3 ml INH RQ4 PRN PRN Reason: Shortness of Breath Last Admin: 11/22/17 08:22 Dose: 3 ml Alprazolam (Xanax) 0.5 mg PO TID@0900,1400,2100 [facility] Last Admin: 11/23/17 13:43 Dose: 0.5 mg Aspirin (Aspirin Chewable) 81 mg PO DAILY [facility] Last Admin: 11/23/17 08:35 Dose: 81 mg Atorvastatin Calcium (Lipitor) 10 mg PO DAILY@2100 [facility] Last Admin: 11/22/17 21:26 Dose: 10 mg Docusate Sodium (Colace) 100 mg PO BID [facility] Last Admin: 11/23/17 17:03 Dose: 100 mg Enoxaparin Sodium (Lovenox) 40 mg SC DAILY [facility] PRN Reason: Protocol Guaifenesin/Dextromethorphan (Robitussin Dm) 10 ml PO Q4 PRN PRN Reason: Cough Last Admin: 11/23/17 10:29 Dose: 10 ml HCTZ/Losartan Potassium (Hyzaar 12.5 Mg-50 Mg) 1 tab PO DAILY [facility] Last Admin: 11/23/17 08:35 Dose: 1 tab Levofloxacin/Dextrose (Levaquin 500mg) 500 mg in 100 mls @ 100 mls/hr IVPB DAILY@1700 [facility] Last Admin: 11/23/17 17:03 Dose: 100 mls/hr Levetiracetam (Keppra) 250 mg PO BID [facility] Last Admin: 11/23/17 17:03 Dose: 250 mg Multivitamins/Minerals (Therapeutic-M Tab) 1 tab PO DAILY [facility] Last Admin: 11/23/17 08:35 Dose: 1 tab Oxycodone HCl (Oxycodone Immediate Release Tab) 30 mg PO Q4 PRN PRN Reason: Pain, moderate (4-7) Last Admin: 11/23/17 17:03 Dose: 30 mg Oxycodone HCl (Oxycontin Extended Release Tab) 30 mg PO Q12 [facility] Stop: 11/23/17 22:16 Last Admin: 11/23/17 10:30 Dose: 30 mg Pantoprazole Sodium (Protonix Ec Tab) 40 mg PO DAILY [facility] Last Admin: 11/23/17 08:35 Dose: 40 mg Fluticasone/Salmeterol (Advair Diskus 250/50) 1 puff IH Q12 [facility] Last Admin: 11/23/17 08:31 Dose: 1 puff Thiamine HCl (Vitamin B1 Tab) 100 mg PO DAILY [facility] Last Admin: 11/23/17 08:35 Dose: 100 mg - Labs Labs: 11/23/17 16:45 11/23/17 15:45 - Constitutional Appears: No Acute Distress - Head Exam Head Exam: ATRAUMATIC - Eye Exam Eye Exam: absent: Scleral icterus - ENT Exam ENT Exam: Mucous Membranes Moist - Neck Exam Neck Exam: absent: Meningismus - Respiratory Exam Respiratory Exam: absent: Rhonchi, Wheezes, Respiratory Distress - Cardiovascular Exam Cardiovascular Exam: REGULAR RHYTHM, +S1, +S2 - GI/Abdominal Exam GI & Abdominal Exam: Soft. absent: Tenderness - Rectal Exam Rectal Exam: Deferred - Neurological Exam Neurological Exam: Alert, Oriented x3 - Psychiatric Exam Psychiatric exam: Normal Affect - Skin Skin Exam: Dry, Intact Assessment and Plan - Assessment and Plan (Free Text) Assessment: 62 yo female with history of RA (on Humira), COPD, HTN, HLD, Aortic Stenosis, previous CVA and Seizure brought in because of 2 weeks coughing productive with thick yellow sputum associated with body aches, fever, SOB and right sided chest pain. She was admitted with a diagnosis of Right Basal Lung Pneumonia when CXray showed patchy infiltrate on the right base. She was put on IV Levaquin and was transferred to TCU for continuation of IV antibiotic and PT/OT for her RA. 1. Right Basal Pneumonia still coughing with thick yellow sputum continue Levaquin 500mg IV daily (8th day) liberal oral intake of fluid WBC: down to 8.1 2. COPD Duoneb q 4hrs prn for wheezing or SOB 3. HTN BP on the low side and BUN going up DC Losartan continue HCTZ 12.5mg PO daily monitor BP 4. Seizure continue Keppra 5. Aortic Stenosis aortic valve replacement recommended but patient still thinking about it 6. RA refer to Dr Maguire for physiatry consult and pain management 7. DVT prophylaxis Lovenox 40mg SQ daily
[2017-11-24] MEDS: oxyCODONE 10 mg Immediate Release Tab PO PRN ×4 (05:27→21:00)
[2017-11-24] MEDS: Enoxaparin 40 mg Syringe SC SCH (08:48)
[2017-11-24] MEDS: Fluticasone-Salmeterol 250-50mcg Diskus IH SCH ×2 (08:48→21:00)
[2017-11-24] MEDS: oxyCODONE 10 mg ER Tab (oxyCONTIN) PO SCH ×3 (08:49→21:39)
[2017-11-24] MEDS: Pantoprazole 40 mg EC Tab PO SCH (08:49)
[2017-11-24] MEDS: Multivitamin With Minerals Tab PO SCH (08:50)
[2017-11-24] MEDS: levoFLOXacin 500 mg in D5W 500 MG/100 ML BAG IVPB SCH (16:39)
[2017-11-25] MEDS: oxyCODONE 10 mg Immediate Release Tab PO PRN ×4 (03:01→16:22)
[2017-11-25] MEDS: Fluticasone-Salmeterol 250-50mcg Diskus IH SCH (08:22)
[2017-11-25] MEDS: Enoxaparin 40 mg Syringe SC SCH (08:23)
[2017-11-25] MEDS: Pantoprazole 40 mg EC Tab PO SCH (08:23)
[2017-11-25] MEDS: Multivitamin With Minerals Tab PO SCH (08:23)
[2017-11-25] MEDS: oxyCODONE 10 mg ER Tab (oxyCONTIN) PO SCH (09:41)
--- NOTE | 2017-11-25 12:59 | CP.PCM.DIS ---
Provider - Provider Date of Admission: 11/17/17 15:23 Attending physician: Reshma Barfield MD Time Spent in preparation of Discharge (in minutes): 30 Hospital Course - Lab Results Lab Results: Most Recent Lab Values WBC 8.1 K/uL (4.8-10.8) 11/23/17 16:45 RBC 3.33 Mil/uL (3.80-5.20) L 11/23/17 16:45 Hgb 9.1 g/dL (12.0-16.0) L 11/23/17 16:45 Hct 28.5 % (34.0-47.0) L 11/23/17 16:45 MCV 85.7 fl (81.0-99.0) 11/23/17 16:45 MCH 27.5 pg (27.0-31.0) 11/23/17 16:45 MCHC 32.0 g/dL (33.0-37.0) L 11/23/17 16:45 RDW 17.3 % (11.5-14.5) H 11/23/17 16:45 Plt Count 468 K/uL (130-400) H 11/23/17 16:45 MPV 7.3 fl (7.2-11.7) 11/23/17 16:45 Neut % (Auto) 52.9 % (50.0-75.0) 11/23/17 16:45 Lymph % (Auto) 32.5 % (20.0-40.0) 11/23/17 16:45 [place] % (Auto) 10.3 % (0.0-10.0) H 11/23/17 16:45 Eos % (Auto) 3.0 % (0.0-4.0) 11/23/17 16:45 Baso % (Auto) 1.3 % (0.0-2.0) 11/23/17 16:45 Neut # (Auto) 4.3 K/uL (1.8-7.0) 11/23/17 16:45 Lymph # (Auto) 2.6 K/uL (1.0-4.3) 11/23/17 16:45 [place] # (Auto) 0.8 K/uL (0.0-0.8) 11/23/17 16:45 Eos # (Auto) 0.2 K/uL (0.0-0.7) 11/23/17 16:45 Baso # (Auto) 0.1 K/uL (0.0-0.2) 11/23/17 16:45 Sodium 139 mmol/l (132-148) 11/23/17 15:45 Potassium 4.2 MMOL/L (3.6-5.0) 11/23/17 15:45 Chloride 96 mmol/L (98-107) L 11/23/17 15:45 Carbon Dioxide 33 mmol/L (22-30) H 11/23/17 15:45 Anion Gap 14 (10-20) 11/23/17 15:45 BUN 28 mg/dl (7-17) H 11/23/17 15:45 Creatinine 1.2 mg/dl (0.7-1.2) 11/23/17 15:45 Est GFR ( Amer) 55 11/23/17 15:45 Est GFR (Non-Af Amer) 45 11/23/17 15:45 Random Glucose 99 mg/dL (65-105) 11/23/17 15:45 Calcium 9.2 mg/dL (8.4-10.2) 11/23/17 15:45 - Hospital Course Hospital Course: 62 yo female with history of RA (on Humira), COPD, HTN, HLD, Aortic Stenosis, previous CVA and Seizure brought in because of 2 weeks coughing productive with thick yellow sputum associated with body aches, fever, SOB and right sided chest pain. She was admitted with a diagnosis of Right Basal Lung Pneumonia when CXray showed patchy infiltrate on the right base. She was put on IV Levaquin and was transferred to TCU for continuation of IV antibiotic and PT/OT for her RA. Patient tolerated PT and IV ABX well. Stable to be discharged home with follow up PCP in one week. 1. Right Basal Pneumonia completed course of Levaquin 2. COPD Duoneb q 4hrs prn for wheezing or SOB 3. HTN DC Losartan continue HCTZ 12.5mg PO daily monitor BP 4. Seizure continue Keppra 5. Aortic Stenosis aortic valve replacement recommended but patient still thinking about it 6. RA refer to Dr Maguire for physiatry consult and pain management 7. DVT prophylaxis Lovenox 40mg SQ daily Discharge Exam - Head Exam Additional comments: Vitals Reviewed GEN: WDWN, ALERT, COOPERATIVE HEENT: NCAT, PERRL, EOMI HEART: RRR, +S1S2, NO MRG LUNG: CTAB, NO WRR ABD: SOFT, NT, ND, NO HSM, NO MASSES EXT: NORMAL PEDAL PULSES, GOOD CAPILLARY REFILL NEURO: AAOX3, STRENGTH EQUAL BILATERAL UPPER AND LOWER EXTREMITIES SKIN: WARM, DRY PSYCH: NORMAL MOOD, NORMAL AFFECT Discharge Plan - Discharge Medications Prescriptions: Albuterol/Ipratropium [Duoneb 3 mg/0.5 mg (3 ml) UD] 3 ml INH RQ4 #30 neb Alprazolam [Xanax] 0.5 mg PO TID #20 tablet Atorvastatin [Lipitor] 10 mg PO DAILY #30 tab Docusate [Colace] 100 mg PO BID #60 cap Fluticasone/Salmeterol 250/50 [Advair Diskus 250/50] 1 puff IH Q12 #60 puff hydroCHLOROthiazide [Microzide] 12.5 mg PO DAILY #30 cap levETIRAcetam [Keppra] 250 mg PO BID #60 tab oxyCODONE [oxyCODONE Immediate Release Tab] 30 mg PO Q4 PRN #20 tab PRN Reason: Pain, Moderate (4-7) Oxycodone HCl [Oxycontin] 30 mg PO Q12 #10 tab.er.12h Thiamine [Vitamin B1 Tab] 100 mg PO DAILY #30 tab - Follow Up Plan Condition: GOOD Disposition: HOME/ ROUTINE
[2017-11-25] MEDS ORDERED: Influenza Vaccine 18yr & older 0.5 ML/45 MCG SYR IM ONE (14:04)
[2017-11-25 16:44] VITALS: BP 93/47; PULSE 71; TEMP 98.1; O2SAT 100
== END 2017-11-25 18:09 | DRG 194 ==
LOC: H.TCU 15:23
PROVIDERS: ADMIT Internal Medicine; ATTEND Internal Medicine
PROC: F08Z1FZ Dressing Techniques Treatment using Assistive, Adaptive, Supportive or Protective Equipment (ICD-10-PCS; 2017-11-17)
PROC: F07Z9FZ Gait Training/Functional Ambulation Treatment using Assistive, Adaptive, Supportive or Protective Equipment (ICD-10-PCS; 2017-11-17)
PROC: F07L6ZZ Therapeutic Exercise Treatment of Musculoskeletal System - Lower Back / Lower Extremity (ICD-10-PCS; 2017-11-17)
PROC: F07Z5FZ Bed Mobility Treatment using Assistive, Adaptive, Supportive or Protective Equipment (ICD-10-PCS; 2017-11-17)
PROC: F07Z8FZ Transfer Training Treatment using Assistive, Adaptive, Supportive or Protective Equipment (ICD-10-PCS; 2017-11-17)
PROC: 3E0234Z Introduction of Serum, Toxoid and Vaccine into Muscle, Percutaneous Approach (ICD-10-PCS; principal; 2017-11-25)
DX: J18.9 Pneumonia, unspecified organism (principal); J44.0 Chronic obstructive pulmonary disease with (acute) lower respiratory infection; E78.5 Hyperlipidemia, unspecified; I10 Essential (primary) hypertension; I35.0 Nonrheumatic aortic (valve) stenosis; Z86.73 Personal history of transient ischemic attack (TIA), and cerebral infarction without residual deficits; F17.210 Nicotine dependence, cigarettes, uncomplicated; Z88.1 Allergy status to other antibiotic agents; Z88.0 Allergy status to penicillin; Z23 Encounter for immunization; M06.9 Rheumatoid arthritis, unspecified; G40.909 Epilepsy, unspecified, not intractable, without status epilepticus